=== PATIENT | female | born 1985 | race African-American/Black ===

== ENCOUNTER 2018-06-11 12:57 | Emergency (ER) | payer SELFPAY ==
[~2018-06-11] VITALS: Ht 154.9 cm; Wt 54.4 kg
[2018-06-11] MEDS ORDERED: SODIUM CHLORIDE 0.9% 1000ML 1,000 ML IV STA (13:16)
[2018-06-11] MEDS ORDERED: KETOROLAC TROMETHAMINE 30 MG/ML VIAL IV STA (13:21)
[2018-06-11] MEDS ORDERED: CLONIDINE HCL 0.1 MG TAB ONE (13:23)
[2018-06-11] MEDS ORDERED: DIPHENHYDRAMINE HCL INJ 50 MG/ML VIAL IV ONE (13:30)
[2018-06-11] MEDS ORDERED: CLONIDINE HCL 0.1 MG TAB PO ONE (13:30)
[2018-06-11] MEDS ORDERED: METOCLOPRAMIDE HCL 10 MG/2ML VIAL IV ONE (13:30)
[2018-06-11 14:01] LABS: BASOPHILS % 0.5 % (0.0-1.0); EOSINOPHILS % 0.3 % (0.0-6.0); HEMATOCRIT 37.9 % (34.2-44.1); LYMPHOCYTES # (AUTO) 2.4 (1.0-3.2); LYMPHOCYTES % 38.9 % (18.0-39.1); MEAN CORPUSCULAR HEMOGLOBIN 27.3 pg (28-32); MEAN CORPUSCULAR HGB CONC 31.7 g/dL (31-35); MEAN CORPUSCULAR VOLUME 86.3 fL (81-99); MONOCYTES # (AUTO) 0.5 (0.2-0.8); MONOCYTES % 7.6 % (4.4-11.3); NEUTROPHILS # (AUTO) 3.2 (2.1-6.9); NEUTROPHILS % 52.4 % (38.7-80.0); PLATELET COUNT 306 x10e3/uL (140-360); RED BLOOD COUNT 4.39 x10e6/uL (3.6-5.1); RED CELL DISTRIBUTION WIDTH 13.7 % (11.7-14.4)
[2018-06-11 14:23] LABS: ALANINE AMINOTRANSFERASE 12 IU/L (0-55); ALBUMIN 3.8 g/dL (3.5-5.0); ALBUMIN/GLOBULIN RATIO 0.9 (0.8-2.0); ALKALINE PHOSPHATASE 72 IU/L (40-150); ANION GAP 12.3 mmol/L (8-16); BLOOD UREA NITROGEN 7 mg/dL (7-26); BUN/CREATININE RATIO 9 (6-25); CALCIUM 9.5 mg/dL (8.4-10.2); CARBON DIOXIDE 28 mmol/L (22-29); CHLORIDE 102 mmol/L (98-107); CREATINE KINASE 124 IU/L (29-168); CREATININE, SERUM 0.81 mg/dL (0.57-1.11); EST GLOMERULAR FILTRATION RATE > 60 ML/MIN (60-); POTASSIUM 3.3 mmol/L (3.5-5.1); SODIUM 139 mmol/L (136-145)
[2018-06-11 14:52] LABS: GLUCOSE 114 mg/dL (74-118)
--- NOTE | 2018-06-11 15:08 | Diagnostic Imaging Report ---
EXAMINATION: CHEST SINGLE (NOT PORTABLE) INDICATION: High blood pressure COMPARISON: None FINDINGS: TUBES and LINES: None. LUNGS: Lungs are well inflated. Lungs are clear. There is no evidence of pneumonia or pulmonary edema. PLEURA: No pleural effusion or pneumothorax. HEART AND MEDIASTINUM: The cardiomediastinal silhouette is unremarkable. BONES AND SOFT TISSUES: No acute osseous lesion. Soft tissues are unremarkable. UPPER ABDOMEN: No free air under the diaphragm. IMPRESSION: No acute thoracic abnormality. Signed by: Dr. Fabiano Quick M.D. on 06/11/2018 3:05 PM
[2018-06-11] MEDS ORDERED: SODIUM CHLORIDE 0.9% 100 ML 100 ML ONE (15:50)
[2018-06-11 16:42] LABS: BILIRUBIN,URINE NEGATIVE (NEGATIVE); CLARITY,URINE CLEAR (CLEAR); COLOR,URINE YELLOW (YELLOW); KETONES,URINE NEGATIVE (NEGATIVE); LEUKOCYTE ESTERASE ,URINE TRACE (NEGATIVE); NITRITE,URINE NEGATIVE (NEGATIVE); PROTEIN,URINE DIPSTICK NEGATIVE (NEGATIVE); URINE UROBILINOGEN 0.2 mg/dL (0.2 - 1)
[2018-06-11 16:49] LABS: EPITHELIAL CELLS,URINE FEW /LPF; RBC,URINE 0-5 /HPF (0-5); TRICHOMONAS,URINE FEW
--- NOTE | 2018-06-11 18:11 | Diagnostic Imaging Report ---
ADDENDUM #1 Dose modulation, iterative reconstruction, and/or weight based adjustment of the mA/kV was utilized to reduce the radiation dose to as low as reasonably achievable. Signed by: Dr. Paco Ayoub M.D. on 06/21/2018 1:51 PM ORIGINAL REPORT Exam: Intracranial CTA History: Blurry vision, headache, Comparison studies:None Technique: Axial images were obtained from the skull base to the vertex. Coronal and sagittal images reconstructed from the axial data. Additional multiplanar MIP and 3-D volume rendered images through the [place] of [place] were reconstructed from the axial source data. Intravenous contrast: 100 cc of Omnipaque 300. Findings: No aneurysm or arteriovascular malformation identified. Internal carotid arteries: Patent, no abnormalities. Middle cerebral arteries: Patent bilaterally. No proximal branch occlusion or stenosis. Anterior cerebral arteries: Patent, no major branch occlusion or stenosis. Vertebral arteries: Patent, no abnormalities. Basilar artery: Patent, no abnormalities. Posterior cerebral arteries: Patent bilaterally. No proximal branch occlusion or stenosis. Anatomical variants: Anterior communicating artery: Not well visualized Posterior communicating arteries: Patent on the right. Not visualized on the left, possibly hypoplastic. Vertebral arteries: Codominant. IMPRESSION: Normal intracranial CT angiogram. Signed by: Dr. Paco Ayoub M.D. on 06/11/2018 6:08 PM
[2018-06-11 18:42] VITALS: BP 140/85
== END 2018-06-11 18:43 | disposition home or self-care (01) ==
LOC: ER 12:57
DX: R51 Headache (principal); I10 Essential (primary) hypertension
CPT/HCPCS: 36415; 70496; 71045; 80053; 81001; 82550; 82553; 84484; 84702; 85025; 93005; 99284; J1200; J1885; J2765; J7030